=== PATIENT | female | born 2000 | race Caucasian/White ===

== ENCOUNTER 2023-02-10 14:54 | Emergency (ER) | payer SELFPAY ==
[~2023-02-10] VITALS: Ht 147.3 cm; Wt 86.4 kg
[2023-02-10 14:56] VITALS: BP 126/76; PULSE 88; RESP 16; TEMP 98.9
== END 2023-02-10 14:57 | disposition left against medical advice (07) ==
LOC: EMS 14:54
DX: R10.9 Unspecified abdominal pain (principal); R51.9 Headache, unspecified; K59.00 Constipation, unspecified; Z53.21 Procedure and treatment not carried out due to patient leaving prior to being seen by health care provider
CPT/HCPCS: 99281; Z7502